=== PATIENT | female | born 1975 | race Caucasian/White ===

== ENCOUNTER 2017-10-23 17:31 | Observation (INO) | payer MEDICAID ==
[~2017-10-23] VITALS: Ht 180.3 cm; Wt 127.0 kg
[2017-10-23 17:31] VITALS: BP 200/100; PULSE 84; RESP 18; RESP 7; TEMP 100; O2SAT 100
--- NOTE | 2017-10-23 18:15 | RADRPT ---
EXAM DATE/TIME: 10/23/2017 18:03 [facility] COMPARISON: No previous studies available for comparison. INDICATIONS : Chest pain, difficulty breathing starting today MEDICAL HISTORY : None. SURGICAL HISTORY : None. ENCOUNTER: Initial ACUITY: 1 day PAIN SCORE: 10/10 LOCATION: Bilateral chest FINDINGS: PA and lateral views of the chest demonstrate minimal basilar atelectasis. No consolidation or effusi on. Heart size normal. No pneumothorax. CONCLUSION: 1. Minimal basilar atelectasis. No focal consolidation or effusion. Tejas Mcintosh MD on October 23, 2017 at 18:12 Board Certified Radiologist. This report was verified electronically.
--- NOTE | 2017-10-23 19:20 | PD ---
HPI Chief Complaint: Chest Pain Time Seen by Provider: 19:14 Travel History International Travel<30 days: No Contact w/Intl Traveler<30days: No Traveled to known affect area: No History of Present Illness HPI 42-year-old female with no significant medical history presents to emergency department for evaluation. Patient states that today while at work she began felt dizzy. She developed a moderate headache. She checked her blood pressure noticed that the systolic was greater than 200 in the diastolic was greater than 100. She states she has no history of high blood pressure but it does run in her family. Patient ignored it initially but then her headache intensified. She then began to develop a left sided chest pain that radiated to her left shoulder blade and her left mid arm. This was moderate in severity. It was aching in nature. It went away but has returned. Patient has no self cardiac history however she tells me "people start having heart attacks at 38 and my family." This caused her to be concerns or she came to the emergency department. Patient currently has mild pain. She did have one episode of emesis. She has no shortness of breath or episodes of diaphoresis. She denies any focal deficits or weakness. She has no history of migraine headache. She has no other symptoms to report. [facility] Past Medical History Medical History: Denies Significant Hx Diminished Hearing: No Immunizations Current: Yes Tetanus Vaccination: > 5 Years Influenza Vaccination: No ?: Unknown LMP: 03/2017 : 1 Miscarriage: 1 Past Surgical History Tonsillectomy: Yes Social History Alcohol Use: Yes (OCCASIONAL) Tobacco Use: No Substance Use: No Allergies-Medications (Allergen,Severity, Reaction): Coded Allergies: No Known Allergies (Unverified , 10/23/17) Reported Meds & Prescriptions Reported Meds & Active Scripts Active No Active Prescriptions or Reported Medications Review of Systems Except as stated in HPI: all other systems reviewed are Neg Physical Exam Narrative GENERAL: Obese female patient, sitting in bed, in no acute distress. SKIN: Focused skin assessment warm/dry. HEAD: Atraumatic. Normocephalic. EYES: Pupils equal and round. No scleral icterus. No injection or drainage. EOMI. ENT: No nasal bleeding or discharge. Mucous membranes pink and moist. NECK: Trachea midline. No JVD. CARDIOVASCULAR: Regular rate and rhythm. No murmur appreciated. RESPIRATORY: No accessory muscle use. Clear to auscultation. Breath sounds equal bilaterally. GASTROINTESTINAL: Abdomen soft, non-tender, nondistended. Hepatic and splenic margins not palpable. MUSCULOSKELETAL: No obvious deformities. No clubbing. No cyanosis. No edema. NEUROLOGICAL: Awake and alert. No obvious cranial nerve deficits. Motor grossly within normal limits. Normal speech. PSYCHIATRIC: Appropriate mood and affect; insight and judgment normal. Data Data Last Documented VS Vital Signs Date Time Temp Pulse Resp B/P (MAP) Pulse Ox O2 Delivery O2 Flow Rate FiO2 10/23/17 20:34 72 18 181/98 (125) 97 Room Air 10/23/17 17:31 100.0 Orders Orders Electrocardiogram (10/23/17 ) Chest, Pa & Lat (10/23/17 ) Basic Metabolic Panel (Bmp) (10/23/17 19:18) Ckmb (Isoenzyme) Profile (10/23/17 19:18) Complete Blood Count With Diff (10/23/17 19:18) Magnesium (Mg) (10/23/17 19:18) Prothrombin Time / Inr (Pt) (10/23/17 19:18) Act Partial Throm Time (Ptt) (10/23/17 19:18) Troponin I (10/23/17 19:18) Lipase (10/23/17 19:18) Ecg Monitoring (10/23/17 19:18) Bilateral Bp Monitoring (10/23/17 19:18) Iv Access Insert/Monitor (10/23/17 19:18) Oximetry (10/23/17 19:18) Oxygen Administration (10/23/17 19:18) Aspirin Chew (Aspirin Chew) (10/23/17 19:30) Sodium Chloride 0.9% Flush (Ns Flush) (10/23/17 19:30) Ct Brain W/O Iv Contrast(Rout) (10/23/17 ) Ed Urine Pregnancytest Poc (10/23/17 19:32) Sodium Chlor 0.9% 1000 Ml Inj (Ns 1000 M (10/23/17 20:15) Metoclopramide Inj (Reglan Inj) (10/23/17 20:15) Dexamethasone Inj (Decadron Inj) (10/23/17 20:15) Diphenhydramine Inj (Benadryl Inj) (10/23/17 20:15) CKMB (10/23/17 20:07) CKMB% (10/23/17 20:07) Ketorolac Inj (Toradol Inj) (10/23/17 21:00) Admit Order (Ed Use Only) (10/23/17 20:56) Activity Bed Rest With Brp (10/23/17 20:56) Vital Signs (Adult) Q4H (10/23/17 20:56) Cardiac Rhythm .As Directed (10/23/17 20:56) Notify Dr: Other .PRN (10/23/17 20:56) Notify DrGricelda Parameters (10/23/17 20:56) Resp Oxygen Nasal Cannula (10/23/17 ) Ckmb (Isoenzyme) Profile (10/23/17 23:00) Ckmb (Isoenzyme) Profile (10/24/17 02:00) Troponin I (10/23/17 23:00) Troponin I (10/24/17 02:00) Electrocardiogram (10/23/17 20:56) Electrocardiogram (10/23/17 23:56) ^ Obtain (10/23/17 20:56) Sodium Chloride 0.9% Flush (Ns Flush) (10/23/17 21:00) Sodium Chloride 0.9% Flush (Ns Flush) (10/23/17 21:00) Location Worker / Telemetry [facility].Q8H (10/23/17 20:56) Labs Laboratory Tests Test 10/23/17 20:07 White Blood Count 14.6 TH/MM3 Red Blood Count 4.63 MIL/MM3 Hemoglobin 13.2 GM/DL Hematocrit 40.3 % Mean Corpuscular Volume 87.1 FL Mean Corpuscular Hemoglobin 28.6 PG Mean Corpuscular Hemoglobin Concent 32.8 % Red Cell Distribution Width 15.0 % Platelet Count 357 TH/MM3 Mean Platelet Volume 8.6 FL Neutrophils (%) (Auto) 66.6 % Lymphocytes (%) (Auto) 25.6 % Monocytes (%) (Auto) 5.3 % Eosinophils (%) (Auto) 2.1 % Basophils (%) (Auto) 0.4 % Neutrophils # (Auto) 9.8 TH/MM3 Lymphocytes # (Auto) 3.7 TH/MM3 Monocytes # (Auto) 0.8 TH/MM3 Eosinophils # (Auto) 0.3 TH/MM3 Basophils # (Auto) 0.1 TH/MM3 CBC Comment DIFF FINAL Differential Comment Prothrombin Time 9.8 SEC Prothromb Time International Ratio 1.0 RATIO Activated Partial Thromboplast Time 25.2 SEC Blood Urea Nitrogen 10 MG/DL Creatinine 0.90 MG/DL Random Glucose 86 MG/DL Calcium Level 8.7 MG/DL Magnesium Level 2.1 MG/DL Sodium Level 138 MEQ/L Potassium Level 3.9 MEQ/L Chloride Level 104 MEQ/L Carbon Dioxide Level 26.2 MEQ/L Anion Gap 8 MEQ/L Estimat Glomerular Filtration Rate 69 ML/MIN Total Creatine Kinase 195 U/L Creatine Kinase MB 2.4 NG/ML Creatine Kinase MB % 1.2 % Troponin I LESS THAN 0.02 NG/ML Lipase 105 U/L [facility] Medical Decision Making Medical Screen Exam Complete: Yes Emergency Medical Condition: Yes Medical Record Reviewed: Yes Differential Diagnosis Migraine headache versus cluster headache versus tension headache versus hypertension, essential versus hypertensive urgency versus crisis versus ACS versus chest wall pain versus vasospasm Narrative Course 42-year-old female presents emergency department for evaluation of hypertension , headache, and chest pain. Patient appears without distress. She is hypertensive here in emergency department here and I have asked for reevaluation of this with a properly sized cuff. Patient has been treated for her headache. CT imaging confirms no intracranial abnormality. Patient's chest pain has also resolved as her blood pressures decreased. Based on patient 's family history and presenting symptoms, it is in her best interest to be evaluated overnight and the chest pain center. Plan is discussed with my attending physician as well as the patient. They are in agreement with this plan of care. Diagnosis Primary Impression: Chest pain Qualified Codes: R07.9 - Chest pain, unspecified Additional Impressions: Headache Qualified Codes: R51 - Headache Hypertension Qualified Codes: I10 - Essential (primary) hypertension Admitting Information Admitting Physician Requests: Observation Scripts No Active Prescriptions or Reported Meds Condition: Deana HarperBony guzmánjodie SANTANA Oct 23, 2017 19:20
[2017-10-23 19:21] VITALS: BP 170/105; PULSE 68; RESP 18; O2SAT 98
[2017-10-23] MEDS ORDERED: ASPIRIN 81 MG CHEW TAB PO ONE (19:30)
[2017-10-23] MEDS ORDERED: SODIUM CHLORIDE 0.9% FLUSH 10 ML FLUSH IVF PRN (19:30)
[2017-10-23] MEDS ORDERED: diphenhydrAMINE HCL 50 MG/ML VIAL IV PUSH ONE (20:15)
[2017-10-23] MEDS ORDERED: METOCLOPRAMIDE HCL 10 MG/2 ML VIAL IV PUSH ONE (20:15)
[2017-10-23] MEDS ORDERED: DEXAMETHASONE SOD PHOS 4 MG/ML VIAL IV PUSH ONE (20:15)
[2017-10-23] MEDS ORDERED: SODIUM CHLOR 0.9% 1000 ML INJ 1,000 ML IV ONE (20:15)
--- NOTE | 2017-10-23 20:23 | RADRPT ---
EXAM DATE/TIME: 10/23/2017 20:11 [facility] COMPARISON: No previous studies available for comparison. INDICATIONS : Headache. RADIATION DOSE: 36.89 CTDIvol (mGy) MEDICAL HISTORY : None SURGICAL HISTORY : None. ENCOUNTER: Initial ACUITY: 1 day PAIN SCALE: 6/10 LOCATION: cranial TECHNIQUE: Multiple contiguous axial images were obtained of the head. Using automated exposure control and adj ustment of the mA and/or kV according to patient size, radiation dose was kept as low as reasonably a chievable to obtain optimal diagnostic quality images. DICOM format image data is available electro nically for review and comparison. FINDINGS: CEREBRUM: The ventricles are normal for age. No evidence of midline shift, mass lesion, hemorrhage or acute in farction. No extra-axial fluid collections are seen. POSTERIOR FOSSA: The cerebellum and brainstem are intact. The 4th ventricle is midline. The cerebellopontine angle i s unremarkable. EXTRACRANIAL: The visualized portion of the orbits is intact. SKULL: The calvaria is intact. No evidence of skull fracture. CONCLUSION: Normal examination for a patient of this age. Tejas Mcintosh MD on October 23, 2017 at 20:21 Board Certified Radiologist. This report was verified electronically.
[2017-10-23 20:29] LABS: AUTOMATED NEUTROPHIL # 9.8 TH/MM3 (1.8-7.7); BASOPHIL # 0.1 TH/MM3 (0-0.2); BASOPHIL % 0.4 % (0.0-2.0); EOSINOPHIL # 0.3 TH/MM3 (0-0.4); EOSINOPHIL % 2.1 % (0.0-4.0); HEMATOCRIT 40.3 % (35.0-46.0); HEMOGLOBIN 13.2 GM/DL (11.6-15.3); LYMPH % 25.6 % (9.0-44.0); LYMPHOCYTE # 3.7 TH/MM3 (1.0-4.8); MEAN CELL VOLUME 87.1 FL (80.0-100.0); MEAN CORPUSCULAR HEMOGLOBIN 28.6 PG (27.0-34.0); MEAN CORPUSCULAR HGB CONC 32.8 % (32.0-36.0); MEAN PLATELET VOLUME 8.6 FL (7.0-11.0); MONO % 5.3 % (0.0-8.0); MONOCYTE # 0.8 TH/MM3 (0-0.9); NEUT % 66.6 % (16.0-70.0); PLATELET COUNT 357 TH/MM3 (150-450); RED BLOOD COUNT 4.63 MIL/MM3 (4.00-5.30); WHITE BLOOD COUNT 14.6 TH/MM3 (4.0-11.0)
[2017-10-23 20:34] VITALS: BP 181/98; PULSE 72; RESP 18; O2SAT 97
[2017-10-23 20:44] LABS: BICARBONATE 26.2 MEQ/L (21.0-32.0); BLOOD UREA NITROGEN 10 MG/DL (7-18); CALCIUM 8.7 MG/DL (8.5-10.1); CHLORIDE 104 MEQ/L (98-107); GLOMERULAR FILTRATION RATE 69 ML/MIN (>89); GLUCOSE,RANDOM 86 MG/DL (74-106); LIPASE 105 U/L (73-393); MAGNESIUM 2.1 MG/DL (1.5-2.5); SODIUM (NA) 138 MEQ/L (136-145)
[2017-10-23 20:46] LABS: PROTHROMBIN TIME - PATIENT 9.8 SEC (9.8-11.6)
[2017-10-23 20:48] LABS: TROPONIN I LESS THAN 0.02 NG/ML (0.02-0.05)
[2017-10-23] MEDS ORDERED: SODIUM CHLORIDE 0.9% FLUSH 10 ML FLUSH IV FLUSH PRN (21:00)
[2017-10-23] MEDS ORDERED: SODIUM CHLORIDE 0.9% FLUSH 10 ML FLUSH IV FLUSH SCH (21:00)
[2017-10-23] MEDS ORDERED: KETOROLAC TROMETHAMINE 30 MG/ML (IVP) VIAL IV PUSH ONE (21:00)
[2017-10-23 22:17] VITALS: BP 127/80; PULSE 65; RESP 18; TEMP 98.2; O2SAT 96
[2017-10-23 23:00] VITALS: PULSE 64
[2017-10-24 02:58] LABS: TROPONIN I LESS THAN 0.02 NG/ML (0.02-0.05)
[2017-10-24 03:47] VITALS: BP 118/65; PULSE 72; RESP 16; TEMP 98; O2SAT 96
[2017-10-24 07:15] VITALS: BP 127/65; PULSE 80; RESP 18; TEMP 97.9; O2SAT 97
[2017-10-24 08:00] VITALS: PULSE 65
--- NOTE | 2017-10-24 08:11 | HHI.HP ---
HPI Primary Care Physician No Primary Care Physician Chief Complaint Chest pain History of Present Illness This is a 42-year-old female that presents to ED via private vehicle with her fianc with multiple complaints. She states that while she was at work she suddenly became nauseous and within a few moments started seeing flashes of lights and then developed a headache at the top of her head. She is a medical screener at a doctor's office. She got a automatic blood pressure machine and checked her blood pressure. It was 200/100. She waited a few minutes and rechecked it again and it was 168/100. States she has very unusual for her. States her blood pressure is always good and is never any medication for hypertension. She states she finished her day at the job and then went home. Then around 4:30 to 5:00 while at home she developed an achy sensation to the left chest that radiated to her left shoulder blade. She is not nauseous. No diaphoresis or shortness of breath. The discomfort lasted about 3-1/2 hours. She is still having a headache however she states the medication she was given in the ED helped with that. She was given Reglan, Decadron, Benadryl, and Toradol injections. Currently denies chest discomfort. Denies recent illness. Denies fevers or chills. Has not been coughing. Denies UTI symptoms. Denies abdominal pain. Review of Systems General: Patient denies fevers, chills recent, and recent travel HEENT: Had a headache. Patient denies sore throat, difficulty swallowing. Cardiovascular: Has the chest discomfort as mentioned above. Denies sensation of heart beating rapidly or irregularly. No syncope. Denies diaphoresis. Respiratory: Denies shortness of breath or inspirational chest discomfort. Denies coughing wheezing or hemoptysis. GI: She was nauseous. Patient denies vomiting, diarrhea, abdominal pain, bloody stools. Musculoskeletal: Patient denies joint pain or edema. Denies calf pain or edema. Neurovascular: Had a headache that was relieved in the ED with IV medication. Patient denies numbness, tingling, weakness in extremities. Endocrine: Denies polyuria and polydipsia. Hematologic: Denies easy bruising. Skin: Denies rash or itching. Past Family Social History Allergies: Coded Allergies: No Known Allergies (Unverified , 10/23/17) Past Medical History Denies hypertension, hyperlipidemia, diabetes, and known CAD. Past Surgical History Tonsillectomy. Reported Medications Reported Meds & Active Scripts Active No Active Prescriptions or Reported Medications Active Ordered Medications Current Medications Medications (Trade) Dose Ordered Sig/Amol Route Start Time Stop Time Status Last Admin (NS Flush) 2 ml UNSCH PRN IVF 10/23/17 19:30 (NS Flush) 2 ml UNSCH PRN IV FLUSH 10/23/17 21:00 (NS Flush) 2 ml BID IV FLUSH 10/23/17 21:00 10/23/17 21:17 Family History Her mother had a bypass in her late 50s. Her father had an GA in his mid-to- late 60s. Social History Lifetime nonsmoker. Denies illicit drugs. Ruy call. She is engaged. 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 Has one son. Physical Exam Vital Signs Vital Signs Date Time Temp Pulse Resp B/P (MAP) Pulse Ox O2 Delivery O2 Flow Rate FiO2 10/24/17 07:15 97.9 80 18 127/65 (85) 97 10/24/17 03:47 98.0 72 16 118/65 (82) 96 10/23/17 23:00 64 10/23/17 22:17 98.2 65 18 127/80 (96) 96 10/23/17 21:57 10/23/17 20:34 72 18 181/98 (125) 97 Room Air 10/23/17 19:21 68 18 170/105 (126) 98 Room Air 10/23/17 17:31 100.0 84 18 200/100 (133) 100 Room Air Physical Exam GENERAL: This is a well-nourished, well-developed patient, in no apparent distress. She is obese at 127 kg. Patient speaks in clear complete sentences. Patient is pleasant. HEENT: Head is atraumatic and normocephalic. Neck is supple without lymphadenopathy and trachea is midline. No JVD or carotid bruits. CARDIOVASCULAR: Regular rate and rhythm without murmurs, gallops, or rubs. RESPIRATORY: Clear to auscultation. Breath sounds equal bilaterally. No wheezes , rales, or rhonchi. Chest wall is nontender. No use of accessory muscles. GASTROINTESTINAL: Some mild right upper quadrant tenderness. No guarding or rebound. Abdomen is nondistended. Abdomen soft. No obvious pulsatile mass or bruit. No CVA tenderness. Strong femoral pulses bilaterally. Normal bowel sounds in all quadrants. MUSCULOSKELETAL: Patient is moving upper and lower extremities freely. No calf tenderness or edema, no Homans sign. Strong pulses in upper and lower extremities. NEUROLOGICAL: Patient is alert and oriented. Cranial nerves 2-12 are grossly intact. No focal deficits and speech is clear. There are no meningeal signs. SKIN: No rash and turgor is normal. Laboratory Laboratory Tests Test 10/23/17 20:07 10/24/17 02:01 White Blood Count 14.6 Red Blood Count 4.63 Hemoglobin 13.2 Hematocrit 40.3 Mean Corpuscular Volume 87.1 Mean Corpuscular Hemoglobin 28.6 Mean Corpuscular Hemoglobin Concent 32.8 Red Cell Distribution Width 15.0 Platelet Count 357 Mean Platelet Volume 8.6 Neutrophils (%) (Auto) 66.6 Lymphocytes (%) (Auto) 25.6 Monocytes (%) (Auto) 5.3 Eosinophils (%) (Auto) 2.1 Basophils (%) (Auto) 0.4 Neutrophils # (Auto) 9.8 Lymphocytes # (Auto) 3.7 Monocytes # (Auto) 0.8 Eosinophils # (Auto) 0.3 Basophils # (Auto) 0.1 CBC Comment DIFF FINAL Differential Comment Prothrombin Time 9.8 Prothromb Time International Ratio 1.0 Activated Partial Thromboplast Time 25.2 Blood Urea Nitrogen 10 Creatinine 0.90 Random Glucose 86 Calcium Level 8.7 Magnesium Level 2.1 Sodium Level 138 Potassium Level 3.9 Chloride Level 104 Carbon Dioxide Level 26.2 Anion Gap 8 Estimat Glomerular Filtration Rate 69 Total Creatine Kinase 195 145 Creatine Kinase MB 2.4 1.6 Creatine Kinase MB % 1.2 Troponin I LESS THAN 0.02 LESS THAN 0.02 Lipase 105 Result Diagram: 10/23/17200610/23/172006 Imaging Last [address] 10/23/17 0000 Signed Impressions: Service Date/Time: Monday, October 23, 2017 20:11 - CONCLUSION: Normal examination for a patient of this age. Tejas Mcintosh MD Chest X-Ray 10/23/17 0000 Signed Impressions: Service Date/Time: Monday, October 23, 2017 18:03 - CONCLUSION: 1. Minimal basilar atelectasis. No focal consolidation or effusion. Tejas Mcintosh MD Course EKGs are sinus rhythm without significant ST segment depressions or elevations. Caprini VTE Risk Assessment Caprini VTE Risk Assessment: No/Low Risk (score <= 1) Caprini Risk Assessment Model Point Value = 1 Point Value = 2 Point Value = 3 Point Value = 5 Age 41-60 Minor surgery BMI > 25 kg/m2 Swollen legs Varicose veins or History of unexplained or recurrent spontaneous Oral contraceptives or hormone replacement Sepsis (< 1 month) Serious lung disease, including pneumonia (< 1 month) Abnormal pulmonary function Acute myocardial infarction Congestive heart failure (< 1 month) History of inflammatory bowel disease Medical patient at bed rest Age 61-74 Arthroscopic surgery Major open surgery (> 45 min) Laparoscopic surgery (> 45 min) Malignancy Confined to bed (> 72 hours) Immobilizing plaster cast Central venous access Age >= 75 History of VTE Family history of VTE Factor V Leiden Prothrombin [id number] Lupus anticoagulant Anticardiolipin antibodies Elevated serum homocysteine Heparin-induced thrombocytopenia Other congenital or acquired thrombophilia Stroke (< 1 month) Elective arthroplasty Hip, pelvis, or leg fracture Acute spinal cord injury (< 1 month) Prophylaxis Regimen Total Risk Factor Score Risk Level Prophylaxis Regimen 0-1 Low Early ambulation 2 Moderate Order ONE of the following: *Sequential Compression Device (SCD) *Heparin 5000 units SQ BID 3-4 Higher Order ONE of the following medications: *Heparin 5000 units SQ TID *Enoxaparin/Lovenox 40 mg SQ daily (WT < 150 kg, CrCl > 30 mL/min) *Enoxaparin/Lovenox 30 mg SQ daily (WT < 150 kg, CrCl > 10-29 mL/min) *Enoxaparin/Lovenox 30 mg SQ BID (WT < 150 kg, CrCl > 30 mL/min) AND/OR *Sequential Compression Device (SCD) 5 or more Highest Order ONE of the following medications: *Heparin 5000 units SQ TID (Preferred with Epidurals) *Enoxaparin/Lovenox 40 mg SQ daily (WT < 150 kg, CrCl > 30 mL/min) *Enoxaparin/Lovenox 30 mg SQ daily (WT < 150 kg, CrCl > 10-29 mL/min) *Enoxaparin/Lovenox 30 mg SQ BID (WT < 150 kg, CrCl > 30 mL/min) AND *Sequential Compression Device (SCD) Assessment and Plan Assessment and Plan * Chest pain: Patient has had serial cardiac enzymes and EKGs for ruling out purposes and will be seen by Dr. Rangel of cardiology and the chest pain center. He'll have a Mamadou protocol ETT and if nonischemic likely be discharged home with instructions to follow-up with PCP and return to ED for interval issues. On examination patient had some mild right upper quadrant discomfort and had a mildly elevated white blood cell count 14.6 and also upon arrival in the ED had a temperature 100.0. We will also get a gallbladder ultrasound. If ETT and gallbladder ultrasound are okay the patient will be discharged. Patient's blood pressure was elevated when she first arrived in the ED but normalized on its own. Patient to check her blood pressures and keep it locked discuss with PCP. * Obesity: Patient has been counseled on importance of diet, x-rays, and weight loss. Patient stable this time. She is agreeable to this plan. Jassi Couch Oct 24, 2017 08:11
--- NOTE | 2017-10-24 09:37 | RADRPT ---
EXAM DATE/TIME: 10/24/2017 08:44 [facility] COMPARISON: No previous studies available for comparison. INDICATIONS : Nausea and vomiting. MEDICAL HISTORY : Nausea and vomiting. SURGICAL HISTORY : Tonsillectomy. ENCOUNTER: Initial ACUITY: 1 day PAIN SCORE: 4/10 LOCATION: Right upper quadrant MEASUREMENTS: LIVER: 19.9 cm length COMMON DUCT: 4 mm RIGHT KIDNEY: 11.5 x 5.9 x 5.2 cm FINDINGS: LIVER: The liver is enlarged and demonstrates diffuse fatty infiltration. No focal mass is noted. No biliary ductal dilatation is noted. There is hepatopetal flow within the portal vein. COMMON DUCT: No intraluminal mass or stone visualized. GALLBLADDER: Contains no stones, demonstrates no wall thickening or pericholecystic fluid. PANCREAS: The visualized portions are within normal limits. RIGHT KIDNEY: No evidence of hydronephrosis, stone, or mass. CONCLUSION: Enlarged fatty liver. Aleksandr Cortes MD on October 24, 2017 at 9:30 Board Certified Radiologist. This report was verified electronically.
--- NOTE | 2017-10-24 10:38 | TR ---
Date Performed: 10/24/2017 Time Performed: 09:09:25 DOCTOR: Butch Rangel DRUG LIST: CLINICAL HISTORY: REASON FOR TEST: Chest pain REASON FOR ENDING: OBSERVATION: CONCLUSION: YVETTE PROTOCOL. NO CP. TEST STOPPED AFTER EXCEEDING GOAL HR SECONDARY TO SOB AND LEG FATIGUE. OCCASIONAL PVCS. Maximum UW=482 % Max HR Achieved=90.0% Maximum NQ=226/86 Total Exercise Ti me=4:31 COMMENTS: Conclusion: Normal treadmill exercise. No evidence of ischemia.
--- NOTE | 2017-10-24 10:41 | HHI.DCPOC ---
Discharge Care Plan Diagnosis: (1) Chest pain (2) Obesity Goals to Promote Your Health * To prevent worsening of your condition and complications * To maintain your health at the optimal level Directions to Meet Your Goals Take your medications as prescribed Follow your dietary instruction Follow activity as directed Keep your appointments as scheduled Take your immunizations and boosters as scheduled If your symptoms worsen call your PCP, if no PCP go to Urgent Care Center or Emergency Room Smoking is Dangerous to Your Health. Avoid second hand smoke Call the 24-hour hour crisis hotline for domestic abuse at Jassi Couch Oct 24, 2017 10:41
--- NOTE | 2017-10-24 14:00 | EKG ---
Date Performed: 10/23/2017 Time Performed: 17:54:38 PTAGE: 42 years EKG: Sinus rhythm NORMAL ECG NO PREVIOUS TRACING DOCTOR: Butch Rangel Interpretating Date/Time 10/24/2017 13:59:25
--- NOTE | 2017-10-24 14:00 | EKG ---
Date Performed: 10/24/2017 Time Performed: 00:14:20 PTAGE: 42 years EKG: Sinus rhythm NORMAL ECG PREVIOUS TRACING : 10/23/2017 17.54 Since previous tracing, no significant change noted DOCTOR: Butch Rangel Interpretating Date/Time 10/24/2017 13:58:38
--- NOTE | 2017-10-24 14:03 | EKG ---
Date Performed: 10/24/2017 Time Performed: 03:45:51 PTAGE: 42 years EKG: Sinus rhythm NORMAL ECG PREVIOUS TRACING : 10/24/2017 00.14 Since previous tracing, no significant change noted DOCTOR: Butch Rangel Interpretating Date/Time 10/24/2017 14:01:46
== END 2017-10-24 12:58 | disposition home or self-care (01) ==
LOC: NEPD 17:31 → NEDA 21:00 → NEPFCDU 22:16
PROVIDERS: ADMIT Internal Medicine Cardiovascular Disease; ATTEND Internal Medicine Cardiovascular Disease
DX: R07.89 Other chest pain (principal); R51 Headache; R42 Dizziness and giddiness; R11.2 Nausea with vomiting, unspecified; R10.11 Right upper quadrant pain; E66.9 Obesity, unspecified; Z68.39 Body mass index [BMI] 39.0-39.9, adult; R03.0 Elevated blood-pressure reading, without diagnosis of hypertension
CPT/HCPCS: 70450; 71046; 76705; 80048; 82550; 82552; 83690; 83735; 84484; 84703; 85025; 85610; 85730; 93005; 93017; 96361; 96374; 96375; 99285; G0378; J1100; J1200; J1885; J2765; J7030